=== PATIENT | female | born 1985 | race Caucasian/White ===

== ENCOUNTER 2021-04-09 16:58 | Emergency (ER) | payer SELFPAY ==
[~2021-04-09] VITALS: Ht 162.6 cm; Wt 69.0 kg
[2021-04-09 21:45] VITALS: BP 132/74
== END 2021-04-09 22:41 | disposition left against medical advice (07) ==
LOC: ER 16:58
DX: Z59.0 Homelessness (principal)
CPT/HCPCS: 99283

== ENCOUNTER 2021-04-12 17:49 | Emergency (ER) | payer SELFPAY ==
[~2021-04-12] VITALS: Ht 154.9 cm; Wt 68.0 kg
[2021-04-12 18:08] VITALS: BP 130/87
== END 2021-04-12 21:16 | disposition left against medical advice (07) ==
LOC: ER 17:49
DX: Z53.21 Procedure and treatment not carried out due to patient leaving prior to being seen by health care provider (principal)